=== PATIENT | female | born 1995 | race Caucasian/White ===

== ENCOUNTER 2019-10-22 14:53 | Emergency (ER) | payer BC, SELFPAY ==
[2019-10-22 15:04] VITALS: BP 101/77; PULSE 65; RESP 16; TEMP 37; O2SAT 100
--- NOTE | 2019-10-22 15:37 | ED.URI ---
HPI - URI/Sore Throat General Chief Complaint: Upper Respiratory Infection Stated Complaint: sore throat/cough Source: patient and RN notes reviewed Mode of arrival: ambulatory Limitations: no limitations History of Present Illness HPI Narrative: Patient is a 24-year-old female who presents complaining of sinus congestion, pressure, headache, chills, cough x10+ days. Reports sore throat and difficulty swallowing x2 days. Unknown fever. Patient denies nausea, vomiting or diarrhea. She reports taking [id number] meds with mild relief. Patient reports over the past couple days the increased pain with sore throat and increased facial pressure is main concern. MD elicited complaint: sore throat and sinus pain Related Data Allergies Allergy/AdvReac Type Severity Reaction Status Date / Time No Known Allergies Allergy Verified 10/22/19 15:10 Review of Systems Review of Systems: Narrative: CONSTITUTIONAL: Denies fever, chills, or sweats. EYES: Denies visual changes, redness, or discharge. ENT: Reports congestion, sore throat and facial pressure CARDIOVASCULAR: Denies chest pain, palpitations, or edema. RESPIRATORY: Denies cough or dyspnea. GASTROINTESTINAL: Denies abdominal pain, nausea, vomiting, or diarrhea. GENITOURINARY: Denies dysuria or hematuria. SKIN: Denies rash or itching. MUSCULOSKELETAL: Denies back pain, joint pain, or myalgia. NEUROLOGIC: Reports headache, denies numbness, dizziness, or weakness. PSYCHIATRIC: Denies anxiety or depression. [facility] Past Medical History Medical History No pertinent past medical history Surgical History Surgical History (Updated 10/22/19 @ 15:41 by HENOK Patel) No pertinent past surgical history Social History Social History (Updated 10/22/19 @ 15:42 by HENOK Patel) Smoking status: Never smoker Alcohol intake: current Alcohol use details: Socially Substance use: never Occupation/Education: occupation Gender identity (if verbalized by the patient): Female Exam Narrative: Exam Narrative: GENERAL: Well-appearing, well-nourished, and in no acute distress. HEAD: Normocephalic, atraumatic. EYES: EOMI. No redness or drainage. Conjunctiva are normal. ENT: Mucous membranes pink and moist. Nares clear. No rhinorrhea. TMs normal bilaterally. Throat with palatal petechiae, erythema and edema, no exudate. Uvula midline. Maxillary sinus tenderness with palpation NECK: AROM. Supple. No lymphadenopathy. CHEST: No respiratory distress. Clear to auscultation. HEART: Regular rate and rhythm. No murmur appreciated. Normal peripheral pulses. NEURO: No focal deficits. Alert and oriented x3. Gait steady. PSYCH: Normal affect. No signs of depression or anxiety. Course Vital Signs Vital signs: Vital Signs Temperature 37.0 C 10/22/19 15:04 Pulse Rate 65 10/22/19 15:04 Respiratory Rate 16 10/22/19 15:04 Blood Pressure 101/77 10/22/19 15:04 Pulse Oximetry 100 10/22/19 15:04 Temperature 37.0 C 10/22/19 15:04 Pulse Rate 65 10/22/19 15:04 Respiratory Rate 16 10/22/19 15:04 Blood Pressure 101/77 10/22/19 15:04 Pulse Oximetry 100 10/22/19 15:04 MDM - URI/Sore Throat MDM Narrative Medical decision making narrative: Patient's influenza and strep test were both negative. Patient positive for maxillary sinus tenderness. Patient be treated for sinus infection due to the length of symptoms. Patient aware that she needs to follow-up with PCP in 3 to 5 days if symptoms persist. Patient is stable for discharge to home with outpatient follow-up as needed. Differential Diagnosis Differential diagnosis: Likely sinusitis Lab Data Labs: Influenza A Screen Negative Reference Range: Negative Influenza B Screen Negative Reference Range: Negative Strep Screen Presumptive Negative *(Reference Range: Negative)*
== END 2019-10-22 15:48 | disposition home or self-care (01) ==
PROVIDERS: Emergency Provider Nurse Practitioner
DX: J32.9 Chronic sinusitis, unspecified (principal)
CPT/HCPCS: 87081; 87804; 87880; 99203; G0463

== ENCOUNTER 2020-04-09 09:44 | Emergency (ER) | payer BC, SELFPAY ==
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
[2020-04-09 09:44] VITALS: PULSE 80; RESP 18; TEMP 36.7; O2SAT 100
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
[2020-04-09] MEDS: TETANUS,DIPHTHERIA,AC PERTUSSIS ADULT (0.5 ML) BOOSTRIX IM (11:10)
[2020-04-09 13:55] VITALS: PULSE 90; RESP 20; O2SAT 100
[2020-04-09 13:57] VITALS: PULSE 91; RESP 20; O2SAT 100
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
== END 2020-04-09 14:01 | disposition home or self-care (01) ==
PROVIDERS: Emergency Provider Emergency Medicine
DX: S09.90XA Unspecified injury of head, initial encounter (principal); S01.81XA Laceration without foreign body of other part of head, initial encounter; S80.212A Abrasion, left knee, initial encounter; S80.211A Abrasion, right knee, initial encounter; S50.311A Abrasion of right elbow, initial encounter; V11.0XXA Pedal cycle driver injured in collision with other pedal cycle in nontraffic accident, initial encounter; Z23 Encounter for immunization
CPT/HCPCS: 70450; 73080; 73562; 90471; 90715; 99284; A9270